=== PATIENT | male | born 1990 | race African-American/Black ===

== ENCOUNTER 2016-08-23 15:00 | Inpatient (IN) | payer MEDICAID ==
[2016-08-23] MEDS ORDERED: ALTEPLASE 2 MG VIAL IVP PRN (15:17)
[2016-08-23] MEDS ORDERED: PETROLATUM WHITE EACHEYE PRN (16:08)
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
[2016-08-23] MEDS: ACETAMINOPHEN 650 MG/20.3 ML UDCUP TUBE PRN (19:34)
[2016-08-23] MEDS: CHLORHEXIDINE GLUCONATE 15 ML UDL PO SCH (19:54)
[2016-08-23] MEDS: levETIRAcetam 500 MG/5 ML UDCUP TUBE SCH (21:05)
[2016-08-24] MEDS: ACETAMINOPHEN 650 MG/20.3 ML UDCUP TUBE PRN (03:03)
[2016-08-24 07:42] LABS: ADD DIFF? YES; ADD MORPH? NO; ADD SCAN? NO; ATYPICAL LYMPHOCYTE FLAG 50 (0-99); FRAGMENT RBC FLAG 0 (0-99); HEMATOCRIT 37.2 % (40.0-51.0); HEMOGLOBIN 12.9 g/dL (13.7-17.5); LEFT SHIFT FLG 40 (0-99); LIPEMIA HEMOLYSIS FLAG 90 (0-99); MEAN CELL HEMOGLOBIN 29.9 pg (27.9-34.1); MEAN CELL HEMOGLOBIN CONCENTR. 34.7 g/dL (32.4-36.7); MEAN CELL VOLUME 86.1 fL (81.5-99.8); MEAN PLATELET VOLUME 9.4 fL (8.7-11.7); PLATELET CLUMPS FLAG 0 (0-99); PLATELET COUNT 460 10^3/uL (150-400); RED BLOOD CELL COUNT 4.32 10^6/uL (4.40-6.38); RED CELL DISTRIBUTION WIDTH 12.1 % (11.5-15.2)
[2016-08-24 07:55] LABS: ALANINE AMINOTRANSFERASE 78 IU/L (21-72); ALKALINE PHOSPHATASE 77 IU/L (38-126); ANION GAP 12 mEq/L (8-16); ASPARTATE AMINOTRANSFERASE 55 IU/L (17-59); BILIRUBIN,TOTAL 0.5 mg/dL (0.1-1.4); CALCIUM 9.7 mg/dL (8.5-10.4); CARBON DIOXIDE 27 mEq/l (22-31); CHLORIDE 102 mEq/L (97-110); CREATININE 0.6 mg/dL (0.7-1.3); GLOMERULAR FILTRATION RATE > 60; GLUCOSE 101 mg/dL (70-100); POTASSIUM 4.3 mEq/L (3.5-5.2); SODIUM 141 mEq/L (134-144); TOTAL PROTEIN 6.7 g/dL (6.3-8.2)
[2016-08-24 08:40] LABS: PLATELET ESTIMATE INCREASED (ADEQ)
[2016-08-24] MEDS: ENOXAPARIN 40 MG/0.4 ML SYR SC SCH (09:10)
[2016-08-24] MEDS: ASPIRIN RECTAL 300 MG SUPP PR SCH (09:10)
[2016-08-24] MEDS: levETIRAcetam 500 MG/5 ML UDCUP TUBE SCH ×2 (09:10→20:46)
[2016-08-24] MEDS: CHLORHEXIDINE GLUCONATE 15 ML UDL PO SCH ×2 (09:11→20:47)
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
--- NOTE | 2016-08-24 10:14 | PDOREHIP ---
Admission [facility] - Admission - 3 Day Assessment Period Admission Date/Day 1: 08/23/16 Day 2: 08/24/16 Day 3: 08/25/16 - Active Diagnoses Comorbidities and Co-existing Conditions at Admission: 87271. None of the Above - Skin Conditions Unhealed Pressure Ulcer (1 or more/Stage 1 or >)-Admission: 0. No
[2016-08-24] MEDS: ACETAMINOPHEN 650 MG/20.3 ML UDCUP TUBE SCH ×3 (11:16→23:23)
[2016-08-24] MEDS: traMADol 50 MG TAB PO PRN (20:47)
[2016-08-25] MEDS: traMADol 50 MG TAB PO PRN ×4 (02:20→20:45)
[2016-08-25] MEDS: ACETAMINOPHEN 650 MG/20.3 ML UDCUP TUBE SCH ×4 (05:35→22:17)
[2016-08-25] MEDS ORDERED: BENEFIBER/NUTRISOURCE FIBER PKT 1 EACH TUBE SCH ×2 (09:00→18:00)
[2016-08-25] MEDS: levETIRAcetam 500 MG/5 ML UDCUP TUBE SCH ×2 (09:15→20:45)
[2016-08-25] MEDS: CHLORHEXIDINE GLUCONATE 15 ML UDL PO SCH ×2 (09:15→20:45)
[2016-08-25] MEDS: ENOXAPARIN 40 MG/0.4 ML SYR SC SCH (09:22)
[2016-08-25] MEDS: ASPIRIN RECTAL 300 MG SUPP PR SCH (09:26)
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
[2016-08-25] MEDS: BISACODYL 10 MG SUPP PR PRN (16:43)
[2016-08-25] MEDS: BENEFIBER/NUTRISOURCE FIBER PKT 1 EACH TUBE PRN (18:46)
[2016-08-25] MEDS: SENNOSIDES 17.6 MG/10 ML UDL TUBE PRN (19:39)
[2016-08-26] MEDS: traMADol 50 MG TAB PO PRN ×2 (02:30→21:01)
[2016-08-26] MEDS: ACETAMINOPHEN 650 MG/20.3 ML UDCUP TUBE SCH ×3 (06:18→18:02)
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
[2016-08-26] MEDS: ASPIRIN 325 MG TAB TUBE SCH (09:53)
[2016-08-26] MEDS: levETIRAcetam 500 MG/5 ML UDCUP TUBE SCH ×2 (09:53→21:01)
[2016-08-26] MEDS: CHLORHEXIDINE GLUCONATE 15 ML UDL PO SCH ×2 (09:54→21:01)
[2016-08-26] MEDS: ENOXAPARIN 40 MG/0.4 ML SYR SC SCH (09:54)
[2016-08-26] MEDS ORDERED: BENEFIBER/NUTRISOURCE FIBER PKT 1 EACH TUBE SCH (18:00)
[2016-08-26] MEDS ORDERED: traZODone 50 MG TAB PO SCH (21:00)
[2016-08-26] MEDS: traZODone 50 MG TAB TUBE SCH (21:01)
[2016-08-27] MEDS: ACETAMINOPHEN 650 MG/20.3 ML UDCUP TUBE SCH ×4 (00:34→18:04)
[2016-08-27] MEDS: traMADol 50 MG TAB PO PRN ×2 (02:45→21:02)
[2016-08-27] MEDS: ASPIRIN 325 MG TAB TUBE SCH (09:25)
[2016-08-27] MEDS: CHLORHEXIDINE GLUCONATE 15 ML UDL PO SCH ×2 (09:26→21:03)
[2016-08-27] MEDS: levETIRAcetam 500 MG/5 ML UDCUP TUBE SCH ×2 (09:26→21:02)
[2016-08-27] MEDS: ENOXAPARIN 40 MG/0.4 ML SYR SC SCH (09:26)
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
[2016-08-27] MEDS: traZODone 50 MG TAB TUBE SCH (21:02)
[2016-08-28] MEDS: ACETAMINOPHEN 650 MG/20.3 ML UDCUP TUBE SCH ×4 (02:24→16:58)
[2016-08-28] MEDS: traMADol 50 MG TAB PO PRN ×2 (03:43→16:57)
[2016-08-28] MEDS: ASPIRIN 325 MG TAB TUBE SCH (11:47)
[2016-08-28] MEDS: CHLORHEXIDINE GLUCONATE 15 ML UDL PO SCH (11:48)
[2016-08-28] MEDS: levETIRAcetam 500 MG/5 ML UDCUP TUBE SCH ×2 (11:48→20:08)
[2016-08-28] MEDS: ENOXAPARIN 40 MG/0.4 ML SYR SC SCH (11:48)
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
[2016-08-28] MEDS: BISACODYL 10 MG SUPP PR PRN (16:58)
[2016-08-28] MEDS: SENNOSIDES 17.6 MG/10 ML UDL TUBE PRN (16:59)
[2016-08-28] MEDS: BENEFIBER/NUTRISOURCE FIBER PKT 1 EACH TUBE PRN (16:59)
[2016-08-28] MEDS: traZODone 50 MG TAB TUBE SCH (20:08)
[2016-08-28] MEDS: NYSTATIN SUSP 500000 UNIT/5 ML UDCUP PO SCH (20:09)
[2016-08-29] MEDS: ACETAMINOPHEN 650 MG/20.3 ML UDCUP TUBE SCH ×4 (03:19→18:28)
[2016-08-29] MEDS: traMADol 50 MG TAB PO PRN ×3 (05:24→18:28)
[2016-08-29] MEDS: CHLORHEXIDINE GLUCONATE 15 ML UDL PO SCH ×3 (05:31→22:00)
[2016-08-29] MEDS: NYSTATIN SUSP 500000 UNIT/5 ML UDCUP PO SCH ×4 (06:34→22:00)
[2016-08-29] MEDS ORDERED: ACETAMINOPHEN 650 MG/20.3 ML UDCUP TUBE ONE (09:00)
[2016-08-29] MEDS: ENOXAPARIN 40 MG/0.4 ML SYR SC SCH (12:27)
[2016-08-29] MEDS: ASPIRIN 325 MG TAB TUBE SCH (12:27)
[2016-08-29] MEDS: levETIRAcetam 500 MG/5 ML UDCUP TUBE SCH ×2 (12:30→22:00)
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
[2016-08-29] MEDS: traZODone 50 MG TAB TUBE SCH (22:00)
[2016-08-30] MEDS: ACETAMINOPHEN 650 MG/20.3 ML UDCUP TUBE SCH ×5 (00:16→23:28)
[2016-08-30] MEDS: traMADol 50 MG TAB PO PRN ×2 (00:16→06:17)
[2016-08-30] MEDS: NYSTATIN SUSP 500000 UNIT/5 ML UDCUP PO SCH ×4 (06:16→21:05)
[2016-08-30 08:11] LABS: LUTEINIZING HORMONE 2.17 mIU/mL (NOT ESTABLSHD); PROLACTIN 27.9 ng/mL (3.7-17.9)
[2016-08-30 08:19] LABS: FOLLICLE STIMULATING HORMONE < 0.66 mIU/mL (1.55-9.74)
[2016-08-30 08:25] LABS: CORTISOL-AM 16.1 ug/dL (4.5-22.7)
[2016-08-30 08:27] LABS: TESTOSTERONE TOTAL 26.5 ng/dL (132-813)
[2016-08-30] MEDS: ASPIRIN 325 MG TAB TUBE SCH (09:52)
[2016-08-30] MEDS: SENNOSIDES 17.6 MG/10 ML UDL TUBE PRN (09:53)
[2016-08-30] MEDS: levETIRAcetam 500 MG/5 ML UDCUP TUBE SCH ×2 (09:55→21:04)
[2016-08-30] MEDS: ENOXAPARIN 40 MG/0.4 ML SYR SC SCH (09:57)
[2016-08-30] MEDS: BENEFIBER/NUTRISOURCE FIBER PKT 1 EACH TUBE PRN (09:58)
[2016-08-30] MEDS: CHLORHEXIDINE GLUCONATE 15 ML UDL PO SCH ×2 (13:10→21:05)
[2016-08-30] MEDS ORDERED: FLUCONAZOLE 150 MG TAB TUBE ONE (16:01)
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
[2016-08-30] MEDS: traMADol 50 MG TAB TUBE SCH ×2 (16:36→23:29)
[2016-08-30] MEDS: traZODone 50 MG TAB TUBE SCH (21:05)
[2016-08-30] MEDS: POLYETHYLENE GLYCOL 3350 17 GM PKT TUBE PRN (21:05)
[2016-08-30] MEDS: SENNOSIDES 17.6 MG/10 ML UDL TUBE SCH (21:05)
[2016-08-31] MEDS: NYSTATIN SUSP 500000 UNIT/5 ML UDCUP PO SCH ×4 (05:41→21:07)
[2016-08-31] MEDS: traMADol 50 MG TAB TUBE SCH ×4 (05:41→23:25)
[2016-08-31] MEDS: ACETAMINOPHEN 650 MG/20.3 ML UDCUP TUBE SCH ×4 (05:42→23:25)
[2016-08-31] MEDS: ASPIRIN 325 MG TAB TUBE SCH (09:54)
[2016-08-31] MEDS: ENOXAPARIN 40 MG/0.4 ML SYR SC SCH (09:54)
[2016-08-31] MEDS: CHLORHEXIDINE GLUCONATE 15 ML UDL PO SCH ×2 (09:54→21:07)
[2016-08-31] MEDS: SENNOSIDES 17.6 MG/10 ML UDL TUBE SCH ×2 (09:55→21:07)
[2016-08-31] MEDS: levETIRAcetam 500 MG/5 ML UDCUP TUBE SCH (10:33)
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
[2016-08-31] MEDS: traZODone 50 MG TAB TUBE SCH (21:07)
[2016-08-31] MEDS: traMADol 50 MG TAB PO PRN (21:08)
[2016-09-01] MEDS: ACETAMINOPHEN 650 MG/20.3 ML UDCUP TUBE SCH ×4 (05:19→23:55)
[2016-09-01] MEDS: NYSTATIN SUSP 500000 UNIT/5 ML UDCUP PO SCH ×4 (05:19→22:12)
[2016-09-01] MEDS: traMADol 50 MG TAB TUBE SCH ×4 (05:20→23:56)
[2016-09-01 08:09] LABS: ANION GAP 14 mEq/L (8-16); CALCIUM 10.2 mg/dL (8.5-10.4); CARBON DIOXIDE 26 mEq/l (22-31); CHLORIDE 99 mEq/L (97-110); CREATININE 0.7 mg/dL (0.7-1.3); GLOMERULAR FILTRATION RATE > 60; GLUCOSE 124 mg/dL (70-100); SODIUM 139 mEq/L (134-144)
[2016-09-01] MEDS: ENOXAPARIN 40 MG/0.4 ML SYR SC SCH (09:39)
[2016-09-01] MEDS: CHLORHEXIDINE GLUCONATE 15 ML UDL PO SCH ×2 (09:39→22:12)
[2016-09-01] MEDS: SENNOSIDES 17.6 MG/10 ML UDL TUBE SCH ×2 (09:39→22:11)
[2016-09-01] MEDS: POLYETHYLENE GLYCOL 3350 17 GM PKT TUBE PRN (09:39)
[2016-09-01] MEDS: ASPIRIN 325 MG TAB TUBE SCH (09:39)
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
[2016-09-01] MEDS: traZODone 50 MG TAB TUBE SCH (22:14)
[2016-09-02] MEDS: traMADol 50 MG TAB TUBE SCH ×3 (05:19→17:58)
[2016-09-02] MEDS: ACETAMINOPHEN 650 MG/20.3 ML UDCUP TUBE SCH ×3 (05:19→17:58)
[2016-09-02] MEDS: NYSTATIN SUSP 500000 UNIT/5 ML UDCUP PO SCH ×4 (05:19→22:16)
[2016-09-02] MEDS ORDERED: BISACODYL 10 MG SUPP PR ONE (06:49)
[2016-09-02] MEDS: BISACODYL 10 MG SUPP PR SCH (06:52)
[2016-09-02] MEDS: POLYETHYLENE GLYCOL 3350 17 GM PKT TUBE PRN (09:12)
[2016-09-02] MEDS: ENOXAPARIN 40 MG/0.4 ML SYR SC SCH (09:13)
[2016-09-02] MEDS: CHLORHEXIDINE GLUCONATE 15 ML UDL PO SCH ×2 (09:13→22:15)
[2016-09-02] MEDS: ASPIRIN 325 MG TAB TUBE SCH (09:13)
[2016-09-02] MEDS: SENNOSIDES 17.6 MG/10 ML UDL TUBE SCH ×2 (09:13→22:15)
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
[2016-09-02] MEDS: traZODone 50 MG TAB TUBE SCH (22:17)
[2016-09-03] MEDS: ACETAMINOPHEN 650 MG/20.3 ML UDCUP TUBE SCH ×4 (02:05→17:38)
[2016-09-03] MEDS: traMADol 50 MG TAB TUBE SCH ×5 (02:05→23:14)
[2016-09-03] MEDS: NYSTATIN SUSP 500000 UNIT/5 ML UDCUP PO SCH ×4 (05:43→23:13)
[2016-09-03] MEDS: BISACODYL 10 MG SUPP PR SCH (05:50)
[2016-09-03] MEDS: ASPIRIN 325 MG TAB TUBE SCH (09:55)
[2016-09-03] MEDS: ENOXAPARIN 40 MG/0.4 ML SYR SC SCH (09:55)
[2016-09-03] MEDS: SENNOSIDES 17.6 MG/10 ML UDL TUBE SCH (09:58)
[2016-09-03] MEDS: CHLORHEXIDINE GLUCONATE 15 ML UDL PO SCH (10:26)
[2016-09-03] MEDS ORDERED: BISACODYL 10 MG SUPP PR PRN (13:49)
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
[2016-09-03] MEDS ORDERED: SENNOSIDES 17.6 MG/10 ML UDL TUBE PRN (14:08)
[2016-09-03] MEDS: traZODone 50 MG TAB TUBE SCH (23:14)
[2016-09-04] MEDS: ACETAMINOPHEN 650 MG/20.3 ML UDCUP TUBE SCH ×4 (00:53→17:14)
[2016-09-04] MEDS: CHLORHEXIDINE GLUCONATE 15 ML UDL PO SCH ×2 (00:53→13:28)
[2016-09-04] MEDS: NYSTATIN SUSP 500000 UNIT/5 ML UDCUP PO SCH ×4 (05:49→21:22)
[2016-09-04] MEDS: traMADol 50 MG TAB TUBE SCH ×3 (05:50→17:15)
[2016-09-04] MEDS: ENOXAPARIN 40 MG/0.4 ML SYR SC SCH (07:47)
[2016-09-04] MEDS: ASPIRIN 325 MG TAB TUBE SCH (07:48)
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
[2016-09-04 13:20] LABS: INSULIN GROWTH FACTOR Z-SCORE 1.28 SD
[2016-09-04] MEDS: traZODone 50 MG TAB TUBE SCH (21:22)
[2016-09-05] MEDS: ACETAMINOPHEN 650 MG/20.3 ML UDCUP TUBE SCH ×5 (00:20→23:38)
[2016-09-05] MEDS: traMADol 50 MG TAB TUBE SCH ×5 (00:21→23:38)
[2016-09-05] MEDS: NYSTATIN SUSP 500000 UNIT/5 ML UDCUP PO SCH ×4 (06:46→21:29)
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
[2016-09-05] MEDS: TESTOSTERONE 1% 5 GM GEL PKT TD SCH (16:09)
[2016-09-05] MEDS: ASPIRIN 325 MG TAB TUBE SCH (16:42)
[2016-09-05] MEDS: ENOXAPARIN 40 MG/0.4 ML SYR SC SCH (16:42)
[2016-09-05] MEDS: traZODone 50 MG TAB TUBE SCH (21:29)
[2016-09-06] MEDS: ASPIRIN 325 MG TAB TUBE SCH (05:14)
[2016-09-06] MEDS: BENEFIBER/NUTRISOURCE FIBER PKT 1 EACH TUBE SCH (05:14)
[2016-09-06] MEDS: NYSTATIN SUSP 500000 UNIT/5 ML UDCUP PO SCH ×4 (05:14→21:39)
[2016-09-06] MEDS: ACETAMINOPHEN 650 MG/20.3 ML UDCUP TUBE SCH ×4 (05:14→23:45)
[2016-09-06] MEDS: ENOXAPARIN 40 MG/0.4 ML SYR SC SCH (05:14)
[2016-09-06] MEDS: traMADol 50 MG TAB TUBE SCH ×4 (05:15→23:46)
[2016-09-06] MEDS ORDERED: ASPIRIN 325 MG TAB TUBE SCH (06:00)
[2016-09-06] MEDS ORDERED: ENOXAPARIN 40 MG/0.4 ML SYR SC SCH (06:00)
[2016-09-06] MEDS: TESTOSTERONE 1% 5 GM GEL PKT TD SCH (09:23)
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
[2016-09-06] MEDS: traZODone 50 MG TAB TUBE SCH (21:25)
[2016-09-07] MEDS: traMADol 50 MG TAB TUBE SCH ×4 (05:51→23:39)
[2016-09-07] MEDS: NYSTATIN SUSP 500000 UNIT/5 ML UDCUP PO SCH ×2 (05:51→11:40)
[2016-09-07] MEDS: ACETAMINOPHEN 650 MG/20.3 ML UDCUP TUBE SCH ×4 (05:51→23:39)
[2016-09-07] MEDS: ENOXAPARIN 40 MG/0.4 ML SYR SC SCH (05:52)
[2016-09-07] MEDS: ASPIRIN 325 MG TAB TUBE SCH (05:52)
[2016-09-07] MEDS: BENEFIBER/NUTRISOURCE FIBER PKT 1 EACH TUBE SCH (05:52)
[2016-09-07] MEDS: TESTOSTERONE 1% 5 GM GEL PKT TD SCH (08:16)
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
[2016-09-07] MEDS ORDERED: BENEFIBER/NUTRISOURCE FIBER PKT 1 EACH ONE (14:38)
[2016-09-07] MEDS ORDERED: BENEFIBER/NUTRISOURCE FIBER PKT 1 EACH TUBE SCH (21:00)
[2016-09-07] MEDS: traZODone 50 MG TAB TUBE SCH (21:18)
[2016-09-08] MEDS: ACETAMINOPHEN 650 MG/20.3 ML UDCUP TUBE SCH ×4 (05:37→23:58)
[2016-09-08] MEDS: ENOXAPARIN 40 MG/0.4 ML SYR SC SCH (05:37)
[2016-09-08] MEDS: ASPIRIN 325 MG TAB TUBE SCH (05:37)
[2016-09-08] MEDS: BENEFIBER/NUTRISOURCE FIBER PKT 1 EACH TUBE SCH ×2 (05:37→15:20)
[2016-09-08] MEDS: traMADol 50 MG TAB TUBE SCH ×4 (05:38→23:57)
[2016-09-08] MEDS: BISACODYL 10 MG SUPP PR SCH (09:15)
[2016-09-08 10:09] LABS: HEMATOCRIT 41.9 % (40.0-51.0); HEMOGLOBIN 14.2 g/dL (13.7-17.5); MEAN CELL HEMOGLOBIN 29.6 pg (27.9-34.1); MEAN CELL HEMOGLOBIN CONCENTR. 33.9 g/dL (32.4-36.7); MEAN CELL VOLUME 87.5 fL (81.5-99.8); RED BLOOD CELL COUNT 4.79 10^6/uL (4.40-6.38); RED CELL DISTRIBUTION WIDTH 13.4 % (11.5-15.2)
[2016-09-08 10:24] LABS: INR 0.98 (0.83-1.16); PROTIME(PATIENT) 12.9 SEC (12.0-15.0)
[2016-09-08 10:36] LABS: ANION GAP 12 mEq/L (8-16); CALCIUM 10.2 mg/dL (8.5-10.4); CARBON DIOXIDE 27 mEq/l (22-31); CHLORIDE 99 mEq/L (97-110); CREATININE 0.6 mg/dL (0.7-1.3); GLOMERULAR FILTRATION RATE > 60; GLUCOSE 87 mg/dL (70-100); POTASSIUM 4.7 mEq/L (3.5-5.2); SODIUM 138 mEq/L (134-144)
[2016-09-08] MEDS: TESTOSTERONE 1% 5 GM GEL PKT TD SCH (11:11)
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
--- NOTE | 2016-09-08 14:35 | CPEKG ---
Heart Rate: 114 RR Interval: 526 P-R Interval: 124 QRSD Interval: 74 QT Interval: 328 QTC Interval: 452 P [place]: 81 QRS [place]: 48 T Wave [place]: 44 EKG Severity - ABNORMAL ECG - EKG Impression: SINUS TACHYCARDIA Electronically Signed By: Roddy Gibbs 08-Sep-2016 16:55:18
[2016-09-08] MEDS ORDERED: MAGNESIUM CITRATE 300 ML BOTTLE TUBE PRN (17:07)
[2016-09-08] MEDS: MELATONIN 3 MG TAB PO SCH (20:48)
[2016-09-08] MEDS: traZODone 50 MG TAB TUBE SCH (20:48)
[2016-09-08] MEDS: SENNOSIDES 17.6 MG/10 ML UDL TUBE SCH (21:07)
[2016-09-09] MEDS: BENEFIBER/NUTRISOURCE FIBER PKT 1 EACH TUBE SCH ×2 (05:43→14:26)
[2016-09-09] MEDS: ACETAMINOPHEN 650 MG/20.3 ML UDCUP TUBE SCH ×4 (05:43→23:52)
[2016-09-09] MEDS: ASPIRIN 325 MG TAB TUBE SCH (05:43)
[2016-09-09] MEDS: ENOXAPARIN 40 MG/0.4 ML SYR SC SCH (05:43)
[2016-09-09] MEDS: traMADol 50 MG TAB TUBE SCH ×4 (05:43→23:52)
[2016-09-09] MEDS: BISACODYL 10 MG SUPP PR SCH (10:15)
[2016-09-09] MEDS: SENNOSIDES 17.6 MG/10 ML UDL TUBE SCH ×2 (11:20→20:54)
[2016-09-09] MEDS: POLYETHYLENE GLYCOL 3350 17 GM PKT TUBE SCH (11:20)
[2016-09-09] MEDS: TESTOSTERONE 1% 5 GM GEL PKT TD SCH (11:27)
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
[2016-09-09] MEDS: traZODone 50 MG TAB TUBE SCH (20:53)
[2016-09-09] MEDS: MELATONIN 3 MG TAB PO SCH (20:53)
[2016-09-10] MEDS: BENEFIBER/NUTRISOURCE FIBER PKT 1 EACH TUBE SCH ×2 (05:51→13:39)
[2016-09-10] MEDS: traMADol 50 MG TAB TUBE SCH ×2 (05:51→11:52)
[2016-09-10] MEDS: ENOXAPARIN 40 MG/0.4 ML SYR SC SCH (05:51)
[2016-09-10] MEDS: ACETAMINOPHEN 650 MG/20.3 ML UDCUP TUBE SCH ×3 (05:52→21:13)
[2016-09-10] MEDS: ASPIRIN 325 MG TAB TUBE SCH (06:05)
[2016-09-10] MEDS: TESTOSTERONE 1% 5 GM GEL PKT TD SCH (08:53)
[2016-09-10] MEDS: POLYETHYLENE GLYCOL 3350 17 GM PKT TUBE SCH (08:53)
[2016-09-10] MEDS: SENNOSIDES 17.6 MG/10 ML UDL TUBE SCH ×2 (08:53→21:12)
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
[2016-09-10] MEDS: BISACODYL 10 MG SUPP PR SCH (16:39)
[2016-09-10] MEDS ORDERED: oxyCODONE IR 5 MG TAB PO ONE (16:59)
[2016-09-10] MEDS ORDERED: oxyCODONE IR 5 MG TAB PO PRN (17:01)
[2016-09-10] MEDS: traZODone 50 MG TAB TUBE SCH (21:14)
[2016-09-10] MEDS: MELATONIN 3 MG TAB PO SCH (21:15)
[2016-09-11] MEDS: BENEFIBER/NUTRISOURCE FIBER PKT 1 EACH TUBE SCH ×2 (06:33→14:02)
[2016-09-11] MEDS: ASPIRIN 325 MG TAB TUBE SCH (06:33)
[2016-09-11] MEDS: ENOXAPARIN 40 MG/0.4 ML SYR SC SCH (06:34)
[2016-09-11] MEDS: ACETAMINOPHEN 650 MG/20.3 ML UDCUP TUBE SCH ×3 (06:34→21:44)
[2016-09-11] MEDS: BISACODYL 10 MG SUPP PR SCH (08:51)
[2016-09-11] MEDS: TESTOSTERONE 1% 5 GM GEL PKT TD SCH (08:52)
[2016-09-11] MEDS: SENNOSIDES 17.6 MG/10 ML UDL TUBE SCH ×2 (08:52→19:05)
[2016-09-11] MEDS: POLYETHYLENE GLYCOL 3350 17 GM PKT TUBE SCH (08:53)
[2016-09-11] MEDS: traMADol 50 MG TAB TUBE PRN ×2 (12:33→22:01)
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
[2016-09-11] MEDS: traZODone 50 MG TAB TUBE SCH (22:07)
[2016-09-11] MEDS: MELATONIN 3 MG TAB PO SCH (22:08)
[2016-09-12] MEDS: ASPIRIN 325 MG TAB TUBE SCH (06:03)
[2016-09-12] MEDS: ACETAMINOPHEN 650 MG/20.3 ML UDCUP TUBE SCH ×3 (06:03→21:48)
[2016-09-12] MEDS: BENEFIBER/NUTRISOURCE FIBER PKT 1 EACH TUBE SCH ×2 (06:04→14:58)
[2016-09-12] MEDS: traMADol 50 MG TAB TUBE PRN ×2 (06:05→12:38)
[2016-09-12] MEDS: ENOXAPARIN 40 MG/0.4 ML SYR SC SCH (06:30)
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
[2016-09-12] MEDS ORDERED: BISACODYL 10 MG SUPP PR PRN (10:19)
[2016-09-12] MEDS: TESTOSTERONE 1% 5 GM GEL PKT TD SCH (12:39)
[2016-09-12] MEDS: SENNOSIDES 17.6 MG/10 ML UDL TUBE SCH ×2 (12:39→21:47)
[2016-09-12] MEDS: POLYETHYLENE GLYCOL 3350 17 GM PKT TUBE SCH (12:40)
[2016-09-12] MEDS ORDERED: traMADol 50 MG TAB PO PRN (13:54)
[2016-09-12] MEDS: oxyCODONE ORAL SOLUTION 10 MG/0.5 ML UDSYR TUBE PRN (14:00)
[2016-09-12] MEDS: BISACODYL 10 MG SUPP PR SCH (15:52)
[2016-09-12] MEDS: traMADol 50 MG TAB TUBE SCH (17:57)
[2016-09-12] MEDS: traZODone 50 MG TAB TUBE SCH (21:48)
[2016-09-12] MEDS: MELATONIN 3 MG TAB PO SCH (21:48)
[2016-09-13] MEDS: traMADol 50 MG TAB TUBE SCH ×5 (05:11→23:01)
[2016-09-13] MEDS: BENEFIBER/NUTRISOURCE FIBER PKT 1 EACH TUBE SCH ×2 (06:05→14:16)
[2016-09-13] MEDS: ACETAMINOPHEN 650 MG/20.3 ML UDCUP TUBE SCH ×3 (06:05→21:04)
[2016-09-13] MEDS: GLYCERIN ADULT 1 EACH SUPP PR SCH (06:06)
[2016-09-13] MEDS: ASPIRIN 325 MG TAB TUBE SCH (06:06)
[2016-09-13] MEDS: ENOXAPARIN 40 MG/0.4 ML SYR SC SCH (06:07)
[2016-09-13] MEDS: TESTOSTERONE 1% 5 GM GEL PKT TD SCH (07:45)
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
[2016-09-13] MEDS: POLYETHYLENE GLYCOL 3350 17 GM PKT TUBE SCH (10:14)
[2016-09-13] MEDS: SENNOSIDES 17.6 MG/10 ML UDL TUBE SCH ×2 (10:14→19:29)
[2016-09-13] MEDS: MELATONIN 3 MG TAB PO SCH (20:52)
[2016-09-13] MEDS: traZODone 50 MG TAB TUBE SCH (20:52)
[2016-09-14] MEDS: ACETAMINOPHEN 650 MG/20.3 ML UDCUP TUBE SCH ×3 (05:53→21:06)
[2016-09-14] MEDS: ASPIRIN 325 MG TAB TUBE SCH (05:58)
[2016-09-14] MEDS: ENOXAPARIN 40 MG/0.4 ML SYR SC SCH (05:58)
[2016-09-14] MEDS: traMADol 50 MG TAB TUBE SCH ×4 (05:58→23:26)
[2016-09-14] MEDS: BENEFIBER/NUTRISOURCE FIBER PKT 1 EACH TUBE SCH ×2 (05:58→14:10)
[2016-09-14] MEDS: GLYCERIN ADULT 1 EACH SUPP PR SCH (05:59)
[2016-09-14] MEDS: TESTOSTERONE 1% 5 GM GEL PKT TD SCH (07:55)
[2016-09-14] MEDS: SENNOSIDES 17.6 MG/10 ML UDL TUBE SCH ×2 (07:57→21:07)
[2016-09-14] MEDS: POLYETHYLENE GLYCOL 3350 17 GM PKT TUBE SCH (07:57)
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
[2016-09-14] MEDS: traZODone 50 MG TAB TUBE SCH (21:07)
[2016-09-14] MEDS: MELATONIN 3 MG TAB PO SCH (21:07)
[2016-09-15] MEDS: ENOXAPARIN 40 MG/0.4 ML SYR SC SCH (05:01)
[2016-09-15] MEDS: ASPIRIN 325 MG TAB TUBE SCH (05:01)
[2016-09-15] MEDS: traMADol 50 MG TAB TUBE SCH ×4 (05:01→23:49)
[2016-09-15] MEDS: ACETAMINOPHEN 650 MG/20.3 ML UDCUP TUBE SCH ×3 (05:01→21:21)
[2016-09-15] MEDS: BENEFIBER/NUTRISOURCE FIBER PKT 1 EACH TUBE SCH ×2 (05:01→14:31)
[2016-09-15] MEDS: GLYCERIN ADULT 1 EACH SUPP PR SCH (05:04)
[2016-09-15] MEDS: TESTOSTERONE 1% 5 GM GEL PKT TD SCH (07:36)
[2016-09-15] MEDS: SENNOSIDES 17.6 MG/10 ML UDL TUBE SCH ×2 (07:36→21:21)
[2016-09-15] MEDS: POLYETHYLENE GLYCOL 3350 17 GM PKT TUBE SCH (07:36)
[2016-09-15] MEDS: oxyCODONE ORAL SOLUTION 10 MG/0.5 ML UDSYR TUBE PRN ×2 (07:37→15:56)
[2016-09-15] MEDS: TEARS/DEXTRAN 70/HYPROMELLOSE 15 ML OPHT.BTL EACHEYE PRN (11:55)
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
[2016-09-15] MEDS: traZODone 50 MG TAB TUBE SCH (21:22)
[2016-09-15] MEDS: MELATONIN 3 MG TAB PO SCH (21:22)
[2016-09-16] MEDS: oxyCODONE ORAL SOLUTION 10 MG/0.5 ML UDSYR TUBE PRN ×2 (04:39→09:16)
[2016-09-16] MEDS: ACETAMINOPHEN 650 MG/20.3 ML UDCUP TUBE SCH ×3 (05:42→22:22)
[2016-09-16] MEDS: ASPIRIN 325 MG TAB TUBE SCH (05:43)
[2016-09-16] MEDS: BENEFIBER/NUTRISOURCE FIBER PKT 1 EACH TUBE SCH ×2 (05:43→15:04)
[2016-09-16] MEDS: GLYCERIN ADULT 1 EACH SUPP PR SCH (05:43)
[2016-09-16] MEDS: ENOXAPARIN 40 MG/0.4 ML SYR SC SCH (05:44)
[2016-09-16] MEDS: traMADol 50 MG TAB TUBE SCH ×4 (05:44→22:22)
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
[2016-09-16] MEDS: SENNOSIDES 17.6 MG/10 ML UDL TUBE SCH ×2 (09:17→20:31)
[2016-09-16] MEDS: POLYETHYLENE GLYCOL 3350 17 GM PKT TUBE SCH (09:17)
[2016-09-16] MEDS: TESTOSTERONE 1% 5 GM GEL PKT TD SCH (09:26)
[2016-09-16] MEDS: MELATONIN 3 MG TAB PO SCH (20:31)
[2016-09-16] MEDS: traZODone 50 MG TAB TUBE SCH (20:31)
[2016-09-17] MEDS: oxyCODONE ORAL SOLUTION 10 MG/0.5 ML UDSYR TUBE PRN (01:38)
[2016-09-17] MEDS: ACETAMINOPHEN 650 MG/20.3 ML UDCUP TUBE SCH ×3 (05:02→21:38)
[2016-09-17] MEDS: BENEFIBER/NUTRISOURCE FIBER PKT 1 EACH TUBE SCH ×2 (05:02→13:14)
[2016-09-17] MEDS: ENOXAPARIN 40 MG/0.4 ML SYR SC SCH (05:03)
[2016-09-17] MEDS: GLYCERIN ADULT 1 EACH SUPP PR SCH (05:03)
[2016-09-17] MEDS: ASPIRIN 325 MG TAB TUBE SCH (05:03)
[2016-09-17] MEDS: traMADol 50 MG TAB TUBE SCH ×3 (05:03→17:27)
[2016-09-17] MEDS: TESTOSTERONE 1% 5 GM GEL PKT TD SCH (10:07)
[2016-09-17] MEDS: SENNOSIDES 17.6 MG/10 ML UDL TUBE SCH ×2 (10:15→21:32)
[2016-09-17] MEDS: POLYETHYLENE GLYCOL 3350 17 GM PKT TUBE SCH (10:15)
[2016-09-17] MEDS ORDERED: GLYCERIN ADULT 1 EACH SUPP PR PRN (14:32)
[2016-09-17] MEDS ORDERED: POLYETHYLENE GLYCOL 3350 17 GM PKT TUBE PRN (14:33)
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
[2016-09-17] MEDS: MELATONIN 3 MG TAB PO SCH (21:40)
[2016-09-17] MEDS: traZODone 50 MG TAB TUBE SCH (21:40)
[2016-09-18] MEDS: traMADol 50 MG TAB TUBE SCH ×5 (00:12→23:41)
[2016-09-18] MEDS: ACETAMINOPHEN 650 MG/20.3 ML UDCUP TUBE SCH ×3 (05:30→21:41)
[2016-09-18] MEDS: ASPIRIN 325 MG TAB TUBE SCH (05:35)
[2016-09-18] MEDS: ENOXAPARIN 40 MG/0.4 ML SYR SC SCH (05:35)
[2016-09-18] MEDS: BENEFIBER/NUTRISOURCE FIBER PKT 1 EACH TUBE SCH ×2 (05:36→14:30)
[2016-09-18] MEDS: SENNOSIDES 17.6 MG/10 ML UDL TUBE SCH ×2 (10:43→21:38)
[2016-09-18] MEDS: TESTOSTERONE 1% 5 GM GEL PKT TD SCH (14:30)
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
[2016-09-18] MEDS: MELATONIN 3 MG TAB PO SCH (21:38)
[2016-09-18] MEDS: traZODone 50 MG TAB TUBE SCH (21:38)
[2016-09-19] MEDS: BENEFIBER/NUTRISOURCE FIBER PKT 1 EACH TUBE SCH ×2 (05:38→13:18)
[2016-09-19] MEDS: ACETAMINOPHEN 650 MG/20.3 ML UDCUP TUBE SCH ×3 (05:38→21:23)
[2016-09-19] MEDS: ASPIRIN 325 MG TAB TUBE SCH (05:40)
[2016-09-19] MEDS: traMADol 50 MG TAB TUBE SCH ×3 (05:40→18:03)
[2016-09-19] MEDS: ENOXAPARIN 40 MG/0.4 ML SYR SC SCH (05:41)
[2016-09-19] MEDS: SENNOSIDES 17.6 MG/10 ML UDL TUBE SCH ×2 (09:52→21:25)
[2016-09-19] MEDS: TESTOSTERONE 1% 5 GM GEL PKT TD SCH (10:40)
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
[2016-09-19 15:37] LABS: % IMMATURE GRANULYOCYTES 0.4 % (0.0-1.1); ABSOLUTE IMMATURE GRANULOCYTES 0.02 10^3/uL (0.00-0.10); ADD DIFF? NO; ADD MORPH? NO; ADD SCAN? NO; ATYPICAL LYMPHOCYTE FLAG 20 (0-99); FRAGMENT RBC FLAG 0 (0-99); HEMATOCRIT 38.8 % (40.0-51.0); HEMOGLOBIN 13.2 g/dL (13.7-17.5); LEFT SHIFT FLG 0 (0-99); LIPEMIA HEMOLYSIS FLAG 90 (0-99); MEAN CELL HEMOGLOBIN 30.3 pg (27.9-34.1); MEAN PLATELET VOLUME 10.7 fL (8.7-11.7); PLATELET CLUMPS FLAG 0 (0-99); PLATELET COUNT 299 10^3/uL (150-400); RED BLOOD CELL COUNT 4.36 10^6/uL (4.40-6.38)
[2016-09-19 19:14] LABS: COLOR YELLOW; LEUKOCYTE ESTERASE,URINE NEGATIVE (NEGATIVE); NITRITE,URINE NEGATIVE (NEGATIVE)
[2016-09-19] MEDS: traZODone 50 MG TAB TUBE SCH (21:23)
[2016-09-19] MEDS: MELATONIN 3 MG TAB PO SCH (21:23)
[2016-09-20] MEDS: traMADol 50 MG TAB TUBE SCH ×5 (00:29→23:49)
[2016-09-20] MEDS: ACETAMINOPHEN 650 MG/20.3 ML UDCUP TUBE SCH ×4 (05:21→23:49)
[2016-09-20] MEDS: ASPIRIN 325 MG TAB TUBE SCH (05:22)
[2016-09-20] MEDS: BENEFIBER/NUTRISOURCE FIBER PKT 1 EACH TUBE SCH ×2 (05:22→17:45)
[2016-09-20] MEDS: TESTOSTERONE 1% 5 GM GEL PKT TD SCH (09:57)
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
[2016-09-20] MEDS ORDERED: ACETAMINOPHEN 650 MG/20.3 ML UDCUP ONE (11:38)
[2016-09-20] MEDS: SENNOSIDES 17.6 MG/10 ML UDL TUBE SCH ×2 (11:42→21:01)
[2016-09-20] MEDS ORDERED: ACETAMINOPHEN 650 MG/20.3 ML UDCUP PO SCH (12:00)
[2016-09-20] MEDS: traZODone 50 MG TAB TUBE SCH (21:01)
[2016-09-20] MEDS: MELATONIN 3 MG TAB PO SCH (21:01)
[2016-09-21] MEDS: BENEFIBER/NUTRISOURCE FIBER PKT 1 EACH TUBE SCH ×2 (05:57→15:54)
[2016-09-21] MEDS: ASPIRIN 325 MG TAB TUBE SCH (05:57)
[2016-09-21] MEDS: ACETAMINOPHEN 650 MG/20.3 ML UDCUP TUBE SCH ×2 (05:57→16:10)
[2016-09-21] MEDS: traMADol 50 MG TAB TUBE SCH ×4 (05:58→23:35)
[2016-09-21] MEDS: TESTOSTERONE 1% 5 GM GEL PKT TD SCH (08:13)
[2016-09-21] MEDS: SENNOSIDES 17.6 MG/10 ML UDL TUBE SCH ×2 (08:17→20:41)
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
[2016-09-21] MEDS: ACETAMINOPHEN 325 MG TAB PO SCH ×3 (12:55→23:35)
[2016-09-21] MEDS: MELATONIN 3 MG TAB PO SCH (20:41)
[2016-09-21] MEDS: traZODone 50 MG TAB TUBE SCH (20:41)
[2016-09-22] MEDS: oxyCODONE ORAL SOLUTION 10 MG/0.5 ML UDSYR TUBE PRN (01:31)
[2016-09-22] MEDS: traMADol 50 MG TAB TUBE PRN ×2 (03:22→19:49)
[2016-09-22] MEDS: BENEFIBER/NUTRISOURCE FIBER PKT 1 EACH TUBE SCH ×2 (05:52→15:39)
[2016-09-22] MEDS: ACETAMINOPHEN 325 MG TAB PO SCH ×4 (05:52→23:36)
[2016-09-22] MEDS: ASPIRIN 325 MG TAB TUBE SCH (05:52)
[2016-09-22] MEDS: traMADol 50 MG TAB TUBE SCH ×4 (05:52→23:37)
[2016-09-22] MEDS: TESTOSTERONE 1% 5 GM GEL PKT TD SCH (10:18)
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
[2016-09-22] MEDS: SENNOSIDES 17.6 MG/10 ML UDL TUBE SCH (15:55)
[2016-09-22] MEDS: traZODone 50 MG TAB TUBE SCH (21:34)
[2016-09-22] MEDS: MELATONIN 3 MG TAB PO SCH (21:34)
[2016-09-22] MEDS: SENNOSIDES 1 TAB PO SCH (21:34)
[2016-09-23] MEDS: ACETAMINOPHEN 325 MG TAB PO SCH ×4 (06:06→22:37)
[2016-09-23] MEDS: traMADol 50 MG TAB TUBE SCH ×4 (06:06→22:38)
[2016-09-23] MEDS: BENEFIBER/NUTRISOURCE FIBER PKT 1 EACH TUBE SCH ×2 (06:06→15:39)
[2016-09-23] MEDS: ASPIRIN 325 MG TAB TUBE SCH (06:06)
[2016-09-23] MEDS: TESTOSTERONE 1% 5 GM GEL PKT TD SCH (09:25)
[2016-09-23] MEDS: SENNOSIDES 1 TAB PO SCH ×2 (09:25→20:25)
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
[2016-09-23] MEDS: traMADol 50 MG TAB TUBE PRN (16:07)
[2016-09-23] MEDS: traZODone 50 MG TAB TUBE SCH (20:25)
[2016-09-23] MEDS: MELATONIN 3 MG TAB PO SCH (20:25)
[2016-09-23] MEDS: oxyCODONE ORAL SOLUTION 10 MG/0.5 ML UDSYR TUBE PRN (20:25)
[2016-09-24] MEDS: traMADol 50 MG TAB TUBE PRN ×2 (03:40→17:10)
[2016-09-24] MEDS: traMADol 50 MG TAB TUBE SCH ×4 (06:01→23:02)
[2016-09-24] MEDS: ASPIRIN 325 MG TAB TUBE SCH (06:01)
[2016-09-24] MEDS: ACETAMINOPHEN 325 MG TAB PO SCH ×4 (06:01→23:03)
[2016-09-24] MEDS: BENEFIBER/NUTRISOURCE FIBER PKT 1 EACH TUBE SCH ×2 (06:02→12:58)
[2016-09-24] MEDS: TESTOSTERONE 1% 5 GM GEL PKT TD SCH (09:08)
[2016-09-24] MEDS: SENNOSIDES 1 TAB PO SCH ×2 (09:08→21:15)
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
[2016-09-24] MEDS: TEARS/DEXTRAN 70/HYPROMELLOSE 15 ML OPHT.BTL EACHEYE PRN (12:56)
[2016-09-24 13:31] LABS: HEMATOCRIT 41.7 % (40.0-51.0); HEMOGLOBIN 14.1 g/dL (13.7-17.5)
[2016-09-24] MEDS: MELATONIN 3 MG TAB PO SCH (21:15)
[2016-09-24] MEDS: traZODone 50 MG TAB TUBE SCH (21:16)
[2016-09-25] MEDS: traMADol 50 MG TAB TUBE SCH ×4 (05:29→23:52)
[2016-09-25] MEDS: ACETAMINOPHEN 325 MG TAB PO SCH ×4 (05:30→23:52)
[2016-09-25] MEDS: BENEFIBER/NUTRISOURCE FIBER PKT 1 EACH TUBE SCH ×2 (05:31→15:38)
[2016-09-25] MEDS: ASPIRIN 325 MG TAB TUBE SCH (05:31)
[2016-09-25] MEDS: TESTOSTERONE 1% 5 GM GEL PKT TD SCH (09:34)
[2016-09-25] MEDS: SENNOSIDES 1 TAB PO SCH ×2 (09:34→23:53)
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
[2016-09-25] MEDS: traZODone 50 MG TAB TUBE SCH (23:52)
[2016-09-25] MEDS: MELATONIN 3 MG TAB PO SCH (23:52)
[2016-09-26] MEDS: ASPIRIN 325 MG TAB TUBE SCH (05:14)
[2016-09-26] MEDS: ACETAMINOPHEN 325 MG TAB PO SCH ×3 (05:14→18:31)
[2016-09-26] MEDS: traMADol 50 MG TAB TUBE SCH ×3 (05:14→18:31)
[2016-09-26] MEDS: BENEFIBER/NUTRISOURCE FIBER PKT 1 EACH TUBE SCH ×2 (05:14→13:26)
[2016-09-26] MEDS: TESTOSTERONE 1% 5 GM GEL PKT TD SCH (10:31)
[2016-09-26] MEDS: SENNOSIDES 1 TAB PO SCH ×2 (10:31→21:47)
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
[2016-09-26] MEDS: traZODone 50 MG TAB TUBE SCH (21:47)
[2016-09-26] MEDS: MELATONIN 3 MG TAB PO SCH (21:47)
[2016-09-27] MEDS: ACETAMINOPHEN 325 MG TAB PO SCH ×4 (00:40→17:18)
[2016-09-27] MEDS: traMADol 50 MG TAB TUBE SCH ×2 (00:41→06:01)
[2016-09-27] MEDS: oxyCODONE IR 5 MG TAB PO PRN ×2 (03:58→20:25)
[2016-09-27] MEDS: ASPIRIN 325 MG TAB TUBE SCH (06:01)
[2016-09-27] MEDS: BENEFIBER/NUTRISOURCE FIBER PKT 1 EACH TUBE SCH (06:01)
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
[2016-09-27] MEDS ORDERED: MAGNESIUM CITRATE 300 ML BOTTLE PO PRN (11:21)
[2016-09-27] MEDS: traMADol 50 MG TAB PO SCH ×2 (12:22→17:19)
[2016-09-27] MEDS: TESTOSTERONE 1% 5 GM GEL PKT TD SCH (12:27)
[2016-09-27] MEDS: SENNOSIDES 1 TAB PO SCH ×2 (12:29→20:25)
[2016-09-27] MEDS: BENEFIBER/NUTRISOURCE FIBER PKT 1 EACH PO SCH (17:35)
[2016-09-27] MEDS: traMADol 50 MG TAB PO PRN (20:24)
[2016-09-27] MEDS: traZODone 50 MG TAB PO SCH (20:25)
[2016-09-27] MEDS: VALPROIC ACID 250 MG CAP PO SCH (20:25)
[2016-09-27] MEDS: MELATONIN 3 MG TAB PO SCH (20:25)
[2016-09-28] MEDS: traMADol 50 MG TAB PO SCH ×4 (00:53→17:25)
[2016-09-28] MEDS: oxyCODONE IR 5 MG TAB PO PRN ×4 (00:54→19:51)
[2016-09-28] MEDS: ACETAMINOPHEN 325 MG TAB PO SCH ×4 (00:54→16:53)
[2016-09-28] MEDS: ASPIRIN 325 MG TAB PO SCH (05:27)
[2016-09-28] MEDS: BENEFIBER/NUTRISOURCE FIBER PKT 1 EACH PO SCH ×2 (05:27→15:41)
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
[2016-09-28] MEDS: VALPROIC ACID 250 MG CAP PO SCH ×2 (09:06→19:58)
[2016-09-28] MEDS: SENNOSIDES 1 TAB PO SCH ×2 (09:06→19:58)
[2016-09-28] MEDS: TESTOSTERONE 1% 5 GM GEL PKT TD SCH (09:06)
[2016-09-28] MEDS: traMADol 50 MG TAB PO PRN (16:53)
[2016-09-28] MEDS: traZODone 50 MG TAB PO SCH (19:51)
[2016-09-28] MEDS: MELATONIN 3 MG TAB PO SCH (19:59)
[2016-09-29] MEDS: traMADol 50 MG TAB PO SCH ×6 (03:29→23:16)
[2016-09-29] MEDS: ACETAMINOPHEN 325 MG TAB PO SCH ×6 (03:29→23:16)
[2016-09-29] MEDS: ASPIRIN 325 MG TAB PO SCH (05:46)
[2016-09-29] MEDS: BENEFIBER/NUTRISOURCE FIBER PKT 1 EACH PO SCH ×2 (05:55→13:30)
[2016-09-29] MEDS: SENNOSIDES 1 TAB PO SCH ×2 (08:16→20:39)
[2016-09-29] MEDS: VALPROIC ACID 250 MG CAP PO SCH (08:17)
[2016-09-29] MEDS: TESTOSTERONE 1% 5 GM GEL PKT TD SCH (08:17)
[2016-09-29] MEDS: traMADol 50 MG TAB PO PRN (09:18)
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
[2016-09-29] MEDS: MELATONIN 3 MG TAB PO SCH (20:40)
[2016-09-29] MEDS: traZODone 50 MG TAB PO SCH (20:40)
[2016-09-30] MEDS: ASPIRIN 325 MG TAB PO SCH (05:23)
[2016-09-30] MEDS: ACETAMINOPHEN 325 MG TAB PO SCH ×4 (05:23→23:37)
[2016-09-30] MEDS: traMADol 50 MG TAB PO SCH ×4 (05:24→23:38)
[2016-09-30] MEDS: BENEFIBER/NUTRISOURCE FIBER PKT 1 EACH PO SCH ×2 (05:24→12:17)
[2016-09-30] MEDS ORDERED: DIVALPROEX NA 250 MG TAB PO ONE (08:57)
[2016-09-30] MEDS: TESTOSTERONE 1% 5 GM GEL PKT TD SCH (09:17)
[2016-09-30] MEDS: SENNOSIDES 1 TAB PO SCH ×2 (09:17→20:25)
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
[2016-09-30] MEDS ORDERED: RISPERIDONE 1 MG ODT TAB SL ONE (13:48)
[2016-09-30] MEDS: traMADol 50 MG TAB PO PRN (14:14)
[2016-09-30] MEDS: PROPRANOLOL HCL 10 MG TAB PO SCH ×2 (17:17→22:05)
[2016-09-30] MEDS: oxyCODONE IR 5 MG TAB PO PRN (19:50)
[2016-09-30] MEDS: traZODone 50 MG TAB PO SCH (20:26)
[2016-09-30] MEDS: MELATONIN 3 MG TAB PO SCH (20:26)
[2016-10-01] MEDS: ASPIRIN 325 MG TAB PO SCH (05:31)
[2016-10-01] MEDS: ACETAMINOPHEN 325 MG TAB PO SCH ×4 (05:32→23:17)
[2016-10-01] MEDS: traMADol 50 MG TAB PO SCH ×4 (05:32→23:16)
[2016-10-01] MEDS: BENEFIBER/NUTRISOURCE FIBER PKT 1 EACH PO SCH ×2 (05:33→15:53)
[2016-10-01] MEDS: TESTOSTERONE 1% 5 GM GEL PKT TD SCH (07:43)
[2016-10-01] MEDS: oxyCODONE IR 5 MG TAB PO PRN ×2 (07:43→15:54)
[2016-10-01] MEDS: PROPRANOLOL HCL 10 MG TAB PO SCH ×3 (07:43→23:25)
[2016-10-01] MEDS: SENNOSIDES 1 TAB PO SCH ×2 (07:43→23:15)
[2016-10-01] MEDS ORDERED: risperiDONE 1 MG TAB PO ONE (09:50)
[2016-10-01] MEDS ORDERED: risperiDONE 2 MG TAB PO ONE (10:15)
[2016-10-01] MEDS ORDERED: risperiDONE 2 MG TAB PO SCH (10:15)
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
[2016-10-01] MEDS ORDERED: risperiDONE 0.5 MG TAB PO SCH (21:00)
[2016-10-01] MEDS: risperiDONE 0.25 MG TAB PO SCH (23:15)
[2016-10-01] MEDS: MELATONIN 3 MG TAB PO SCH (23:15)
[2016-10-01] MEDS: traZODone 50 MG TAB PO SCH (23:16)
[2016-10-02] MEDS: traMADol 50 MG TAB PO SCH ×5 (05:19→23:48)
[2016-10-02] MEDS: ACETAMINOPHEN 325 MG TAB PO SCH ×5 (05:19→23:49)
[2016-10-02] MEDS: ASPIRIN 325 MG TAB PO SCH (05:19)
[2016-10-02] MEDS: BENEFIBER/NUTRISOURCE FIBER PKT 1 EACH PO SCH ×2 (05:20→13:46)
[2016-10-02 08:03] LABS: HEMATOCRIT 40.6 % (40.0-51.0); HEMOGLOBIN 14.1 g/dL (13.7-17.5); MEAN CELL HEMOGLOBIN 30.9 pg (27.9-34.1); MEAN CELL HEMOGLOBIN CONCENTR. 34.7 g/dL (32.4-36.7); MEAN CELL VOLUME 88.8 fL (81.5-99.8); RED BLOOD CELL COUNT 4.57 10^6/uL (4.40-6.38); RED CELL DISTRIBUTION WIDTH 13.6 % (11.5-15.2)
[2016-10-02 08:26] LABS: ALANINE AMINOTRANSFERASE 49 IU/L (21-72); ALBUMIN 4.2 g/dL (3.5-5.0); ALKALINE PHOSPHATASE 73 IU/L (38-126); ANION GAP 11 mEq/L (8-16); ASPARTATE AMINOTRANSFERASE 27 IU/L (17-59); BILIRUBIN,TOTAL 1.3 mg/dL (0.1-1.4); BILIRUBIN-CONJUGATED 0.3 mg/dL (0.0-0.5); CALCIUM 10.1 mg/dL (8.5-10.4); CARBON DIOXIDE 24 mEq/l (22-31); CHLORIDE 108 mEq/L (97-110); CREATININE 0.8 mg/dL (0.7-1.3); GLOMERULAR FILTRATION RATE > 60; GLUCOSE 91 mg/dL (70-100); POTASSIUM 4.6 mEq/L (3.5-5.2); SODIUM 143 mEq/L (134-144); TOTAL PROTEIN 6.8 g/dL (6.3-8.2)
[2016-10-02] MEDS: PROPRANOLOL HCL 10 MG TAB PO SCH ×3 (08:40→21:00)
[2016-10-02] MEDS: TESTOSTERONE 1% 5 GM GEL PKT TD SCH (08:41)
[2016-10-02] MEDS: SENNOSIDES 1 TAB PO SCH ×2 (08:41→21:00)
[2016-10-02] MEDS: risperiDONE 0.25 MG TAB PO SCH ×2 (08:41→21:00)
[2016-10-02] MEDS ORDERED: risperiDONE 1 MG TAB PO SCH (09:00)
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
[2016-10-02] MEDS: MELATONIN 3 MG TAB PO SCH (21:00)
[2016-10-02] MEDS: traZODone 50 MG TAB PO SCH (21:00)
[2016-10-03] MEDS: oxyCODONE IR 5 MG TAB PO PRN (04:00)
[2016-10-03] MEDS: traMADol 50 MG TAB PO SCH ×3 (06:04→18:18)
[2016-10-03] MEDS: BENEFIBER/NUTRISOURCE FIBER PKT 1 EACH PO SCH ×2 (06:04→13:44)
[2016-10-03] MEDS: ASPIRIN 325 MG TAB PO SCH (06:04)
[2016-10-03] MEDS: ACETAMINOPHEN 325 MG TAB PO SCH ×3 (06:04→18:16)
[2016-10-03] MEDS: risperiDONE 0.25 MG TAB PO SCH ×2 (08:19→21:45)
[2016-10-03] MEDS: SENNOSIDES 1 TAB PO SCH ×2 (08:19→21:45)
[2016-10-03] MEDS: TESTOSTERONE 1% 5 GM GEL PKT TD SCH (08:20)
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
[2016-10-03] MEDS: PROPRANOLOL HCL 10 MG TAB PO SCH ×3 (08:21→21:42)
[2016-10-03] MEDS: POLYETHYLENE GLYCOL 3350 17 GM PKT PO PRN (08:33)
[2016-10-03] MEDS ORDERED: ACETAMINOPHEN 500 MG TAB PO SCH (09:00)
[2016-10-03] MEDS ORDERED: ACETAMINOPHEN 325 MG TAB PO SCH (09:00)
[2016-10-03] MEDS ORDERED: traMADol 50 MG TAB PO SCH (12:00)
[2016-10-03] MEDS: traZODone 50 MG TAB PO SCH (21:42)
[2016-10-03] MEDS: MELATONIN 3 MG TAB PO SCH (21:42)
[2016-10-04] MEDS: ACETAMINOPHEN 325 MG TAB PO SCH ×5 (04:24→18:38)
[2016-10-04] MEDS: traMADol 50 MG TAB PO SCH ×5 (04:25→18:39)
[2016-10-04] MEDS: BENEFIBER/NUTRISOURCE FIBER PKT 1 EACH PO SCH ×2 (06:21→15:31)
[2016-10-04] MEDS: ASPIRIN 325 MG TAB PO SCH (06:21)
[2016-10-04] MEDS: oxyCODONE IR 5 MG TAB PO PRN (08:15)
[2016-10-04] MEDS: SENNOSIDES 1 TAB PO SCH ×2 (08:17→22:21)
[2016-10-04] MEDS: risperiDONE 0.25 MG TAB PO SCH ×2 (08:17→21:12)
[2016-10-04] MEDS: PROPRANOLOL HCL 10 MG TAB PO SCH ×3 (08:17→21:11)
[2016-10-04] MEDS: TESTOSTERONE 1% 5 GM GEL PKT TD SCH (10:05)
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
[2016-10-04] MEDS: POLYETHYLENE GLYCOL 3350 17 GM PKT PO PRN (15:31)
[2016-10-04] MEDS: traZODone 50 MG TAB PO SCH (21:12)
[2016-10-04] MEDS: MELATONIN 3 MG TAB PO SCH (21:12)
[2016-10-05] MEDS: traMADol 50 MG TAB PO PRN (04:36)
[2016-10-05] MEDS: ACETAMINOPHEN 325 MG TAB PO SCH ×5 (04:44→22:10)
[2016-10-05] MEDS: traMADol 50 MG TAB PO SCH ×5 (04:45→22:11)
[2016-10-05] MEDS: BENEFIBER/NUTRISOURCE FIBER PKT 1 EACH PO SCH ×2 (06:06→14:29)
[2016-10-05] MEDS: ASPIRIN 325 MG TAB PO SCH (06:07)
[2016-10-05] MEDS: risperiDONE 0.25 MG TAB PO SCH ×2 (08:04→22:10)
[2016-10-05] MEDS: PROPRANOLOL HCL 10 MG TAB PO SCH ×3 (08:04→22:13)
[2016-10-05] MEDS: SENNOSIDES 1 TAB PO SCH ×2 (08:04→22:11)
[2016-10-05] MEDS: TESTOSTERONE 1% 5 GM GEL PKT TD SCH (08:05)
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
[2016-10-05] MEDS: risperiDONE 0.25 MG TAB PO PRN (16:38)
[2016-10-05] MEDS: traZODone 50 MG TAB PO SCH (22:10)
[2016-10-05] MEDS: MELATONIN 3 MG TAB PO SCH (22:10)
[2016-10-06] MEDS: ACETAMINOPHEN 325 MG TAB PO SCH ×3 (05:14→17:02)
[2016-10-06] MEDS: ASPIRIN 325 MG TAB PO SCH (05:14)
[2016-10-06] MEDS: BENEFIBER/NUTRISOURCE FIBER PKT 1 EACH PO SCH ×2 (05:15→14:11)
[2016-10-06] MEDS: traMADol 50 MG TAB PO SCH ×3 (05:15→17:02)
[2016-10-06] MEDS: TEARS/DEXTRAN 70/HYPROMELLOSE 15 ML OPHT.BTL EACHEYE PRN ×3 (06:02→21:27)
[2016-10-06] MEDS: POLYETHYLENE GLYCOL 3350 17 GM PKT PO PRN (07:36)
[2016-10-06] MEDS: PROPRANOLOL HCL 10 MG TAB PO SCH ×3 (07:37→20:42)
[2016-10-06] MEDS: risperiDONE 0.25 MG TAB PO SCH ×2 (07:38→20:42)
[2016-10-06] MEDS: SENNOSIDES 1 TAB PO SCH ×2 (07:38→20:42)
[2016-10-06] MEDS: oxyCODONE IR 5 MG TAB PO PRN ×2 (08:24→18:16)
[2016-10-06] MEDS: TESTOSTERONE 1% 5 GM GEL PKT TD SCH (09:57)
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
[2016-10-06] MEDS: risperiDONE 0.25 MG TAB PO PRN (12:55)
[2016-10-06] MEDS: MELATONIN 3 MG TAB PO SCH (20:42)
[2016-10-06] MEDS: traZODone 50 MG TAB PO SCH (20:42)
[2016-10-06] MEDS: PETROLAT,WHT/MIN OIL/SOD CHL 3.5 GM OPHT.OINT EACHEYE PRN (21:27)
[2016-10-07] MEDS: ACETAMINOPHEN 325 MG TAB PO SCH ×4 (04:43→18:02)
[2016-10-07] MEDS: traMADol 50 MG TAB PO SCH ×4 (04:43→18:03)
[2016-10-07] MEDS: BENEFIBER/NUTRISOURCE FIBER PKT 1 EACH PO SCH ×2 (04:44→12:37)
[2016-10-07] MEDS: ASPIRIN 325 MG TAB PO SCH (04:44)
[2016-10-07] MEDS: TESTOSTERONE 1% 5 GM GEL PKT TD SCH (07:42)
[2016-10-07] MEDS: risperiDONE 0.25 MG TAB PO SCH ×2 (07:43→19:30)
[2016-10-07] MEDS: PROPRANOLOL HCL 10 MG TAB PO SCH ×3 (07:43→22:00)
[2016-10-07] MEDS: SENNOSIDES 1 TAB PO SCH ×2 (07:43→19:29)
[2016-10-07] MEDS: oxyCODONE IR 5 MG TAB PO PRN (10:16)
[2016-10-07] MEDS: risperiDONE 0.25 MG TAB PO PRN ×2 (10:56→16:29)
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
[2016-10-07] MEDS: MELATONIN 3 MG TAB PO SCH (19:30)
[2016-10-07] MEDS: traZODone 50 MG TAB PO SCH (19:30)
[2016-10-08] MEDS: traMADol 50 MG TAB PO SCH ×4 (06:02→17:40)
[2016-10-08] MEDS: ASPIRIN 325 MG TAB PO SCH (06:02)
[2016-10-08] MEDS: ACETAMINOPHEN 325 MG TAB PO SCH ×4 (06:02→17:39)
[2016-10-08] MEDS: TEARS/DEXTRAN 70/HYPROMELLOSE 15 ML OPHT.BTL EACHEYE PRN (06:07)
[2016-10-08] MEDS: BENEFIBER/NUTRISOURCE FIBER PKT 1 EACH PO SCH ×2 (06:07→12:30)
[2016-10-08] MEDS: oxyCODONE IR 5 MG TAB PO PRN ×2 (06:56→16:49)
[2016-10-08] MEDS: PROPRANOLOL HCL 10 MG TAB PO SCH ×3 (08:52→20:32)
[2016-10-08] MEDS: TESTOSTERONE 1% 5 GM GEL PKT TD SCH (08:52)
[2016-10-08] MEDS: SENNOSIDES 1 TAB PO SCH ×2 (08:53→20:28)
[2016-10-08] MEDS: risperiDONE 0.25 MG TAB PO SCH ×2 (08:53→20:28)
[2016-10-08] MEDS: risperiDONE 0.25 MG TAB PO PRN (15:29)
[2016-10-08] MEDS: MELATONIN 3 MG TAB PO SCH (20:28)
[2016-10-08] MEDS: traZODone 50 MG TAB PO SCH (20:28)
[2016-10-08] MEDS: traMADol 50 MG TAB PO PRN (20:32)
[2016-10-09] MEDS: ACETAMINOPHEN 325 MG TAB PO SCH ×4 (00:41→17:18)
[2016-10-09] MEDS: traMADol 50 MG TAB PO SCH ×4 (00:41→17:19)
[2016-10-09] MEDS: ASPIRIN 325 MG TAB PO SCH (04:51)
[2016-10-09] MEDS: risperiDONE 0.25 MG TAB PO PRN (04:56)
[2016-10-09] MEDS: BENEFIBER/NUTRISOURCE FIBER PKT 1 EACH PO SCH ×2 (05:50→14:30)
[2016-10-09] MEDS: risperiDONE 0.25 MG TAB PO SCH ×2 (09:06→20:14)
[2016-10-09] MEDS: TESTOSTERONE 1% 5 GM GEL PKT TD SCH (09:06)
[2016-10-09] MEDS: SENNOSIDES 1 TAB PO SCH ×2 (09:06→20:14)
[2016-10-09] MEDS: PROPRANOLOL HCL 10 MG TAB PO SCH ×3 (09:08→20:14)
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
[2016-10-09] MEDS: POLYETHYLENE GLYCOL 3350 17 GM PKT PO PRN (11:58)
[2016-10-09] MEDS: TEARS/DEXTRAN 70/HYPROMELLOSE 15 ML OPHT.BTL EACHEYE PRN (16:13)
[2016-10-09] MEDS: oxyCODONE IR 5 MG TAB PO PRN (19:00)
[2016-10-09] MEDS: MELATONIN 3 MG TAB PO SCH (20:14)
[2016-10-09] MEDS: traMADol 50 MG TAB PO PRN (20:14)
[2016-10-09] MEDS: traZODone 50 MG TAB PO SCH (20:14)
[2016-10-10] MEDS: risperiDONE 0.25 MG TAB PO PRN (03:57)
[2016-10-10] MEDS: ASPIRIN 325 MG TAB PO SCH (06:45)
[2016-10-10] MEDS: ACETAMINOPHEN 325 MG TAB PO SCH ×5 (06:45→23:58)
[2016-10-10] MEDS: traMADol 50 MG TAB PO SCH ×5 (06:46→23:58)
[2016-10-10] MEDS: BENEFIBER/NUTRISOURCE FIBER PKT 1 EACH PO SCH ×2 (06:46→14:17)
[2016-10-10] MEDS: risperiDONE 0.25 MG TAB PO SCH ×2 (08:34→23:58)
[2016-10-10] MEDS: TESTOSTERONE 1% 5 GM GEL PKT TD SCH (08:34)
[2016-10-10] MEDS: PROPRANOLOL HCL 10 MG TAB PO SCH ×3 (08:34→23:58)
[2016-10-10] MEDS: SENNOSIDES 1 TAB PO SCH ×2 (08:34→23:58)
[2016-10-10] MEDS: POLYETHYLENE GLYCOL 3350 17 GM PKT PO PRN (08:34)
[2016-10-10] MEDS: TEARS/DEXTRAN 70/HYPROMELLOSE 15 ML OPHT.BTL EACHEYE PRN (12:24)
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
[2016-10-10] MEDS ORDERED: ZOLPIDEM TARTRATE 5 MG TAB PO PRN (21:21)
[2016-10-10] MEDS: MELATONIN 3 MG TAB PO SCH (23:13)
[2016-10-10] MEDS: traZODone 50 MG TAB PO SCH (23:58)
[2016-10-11] MEDS: ACETAMINOPHEN 325 MG TAB PO SCH ×3 (06:11→16:57)
[2016-10-11] MEDS: ASPIRIN 325 MG TAB PO SCH (06:12)
[2016-10-11] MEDS: BENEFIBER/NUTRISOURCE FIBER PKT 1 EACH PO SCH ×2 (06:12→12:15)
[2016-10-11] MEDS: traMADol 50 MG TAB PO SCH ×3 (06:12→16:57)
[2016-10-11] MEDS: TESTOSTERONE 1% 5 GM GEL PKT TD SCH (08:22)
[2016-10-11] MEDS: risperiDONE 0.25 MG TAB PO SCH ×2 (08:22→20:53)
[2016-10-11] MEDS: traMADol 50 MG TAB PO PRN (08:23)
[2016-10-11] MEDS: SENNOSIDES 1 TAB PO SCH ×2 (08:23→20:53)
[2016-10-11] MEDS: PROPRANOLOL HCL 10 MG TAB PO SCH ×3 (08:26→20:53)
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
[2016-10-11] MEDS: POLYETHYLENE GLYCOL 3350 17 GM PKT PO PRN (16:56)
[2016-10-11] MEDS: traZODone 50 MG TAB PO SCH (20:53)
[2016-10-12] MEDS: traMADol 50 MG TAB PO SCH ×4 (02:00→17:41)
[2016-10-12] MEDS: ACETAMINOPHEN 325 MG TAB PO SCH ×4 (02:00→17:41)
[2016-10-12] MEDS: ASPIRIN 325 MG TAB PO SCH (06:22)
[2016-10-12] MEDS: BENEFIBER/NUTRISOURCE FIBER PKT 1 EACH PO SCH ×2 (06:23→15:05)
[2016-10-12] MEDS: risperiDONE 0.25 MG TAB PO SCH ×2 (08:27→20:54)
[2016-10-12] MEDS: TESTOSTERONE 1% 5 GM GEL PKT TD SCH (08:27)
[2016-10-12] MEDS: SENNOSIDES 1 TAB PO SCH ×2 (08:28→20:58)
[2016-10-12] MEDS: PROPRANOLOL HCL 10 MG TAB PO SCH ×3 (08:37→21:01)
[2016-10-12] MEDS: POLYETHYLENE GLYCOL 3350 17 GM PKT PO PRN (08:39)
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
[2016-10-12] MEDS: risperiDONE 0.25 MG TAB PO PRN (15:07)
[2016-10-12] MEDS: traZODone 50 MG TAB PO SCH (20:58)
[2016-10-13] MEDS: traMADol 50 MG TAB PO SCH ×4 (02:01→18:42)
[2016-10-13] MEDS: ACETAMINOPHEN 325 MG TAB PO SCH ×4 (02:02→18:42)
[2016-10-13] MEDS: BENEFIBER/NUTRISOURCE FIBER PKT 1 EACH PO SCH ×2 (06:04→12:33)
[2016-10-13] MEDS: ASPIRIN 325 MG TAB PO SCH (06:04)
[2016-10-13] MEDS: oxyCODONE IR 5 MG TAB PO PRN (06:49)
[2016-10-13] MEDS: TESTOSTERONE 1% 5 GM GEL PKT TD SCH (08:49)
[2016-10-13] MEDS: risperiDONE 0.25 MG TAB PO SCH ×2 (08:49→20:56)
[2016-10-13] MEDS: SENNOSIDES 1 TAB PO SCH ×2 (08:49→20:56)
[2016-10-13] MEDS: PROPRANOLOL HCL 10 MG TAB PO SCH ×4 (08:49→21:00)
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
[2016-10-13] MEDS: traZODone 50 MG TAB PO SCH (20:56)
[2016-10-14] MEDS: ACETAMINOPHEN 325 MG TAB PO SCH ×4 (05:29→16:59)
[2016-10-14] MEDS: traMADol 50 MG TAB PO SCH ×4 (05:31→16:59)
[2016-10-14] MEDS: ASPIRIN 325 MG TAB PO SCH (06:08)
[2016-10-14] MEDS: BENEFIBER/NUTRISOURCE FIBER PKT 1 EACH PO SCH ×2 (06:09→12:34)
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
[2016-10-14] MEDS: TESTOSTERONE 1% 5 GM GEL PKT TD SCH (09:45)
[2016-10-14] MEDS: PROPRANOLOL HCL 10 MG TAB PO SCH ×2 (09:45→16:57)
[2016-10-14] MEDS: SENNOSIDES 1 TAB PO SCH ×2 (09:45→20:24)
[2016-10-14] MEDS: risperiDONE 0.25 MG TAB PO SCH ×2 (09:45→20:24)
[2016-10-14] MEDS: traZODone 50 MG TAB PO SCH (20:24)
[2016-10-15] MEDS: ACETAMINOPHEN 325 MG TAB PO SCH ×4 (04:16→17:53)
[2016-10-15] MEDS: PROPRANOLOL HCL 10 MG TAB PO SCH ×4 (04:18→20:33)
[2016-10-15] MEDS: traMADol 50 MG TAB PO SCH ×4 (04:20→18:01)
[2016-10-15] MEDS: BENEFIBER/NUTRISOURCE FIBER PKT 1 EACH PO SCH ×2 (05:30→13:45)
[2016-10-15] MEDS: ASPIRIN 325 MG TAB PO SCH (05:30)
[2016-10-15] MEDS: risperiDONE 0.25 MG TAB PO SCH ×2 (08:55→20:33)
[2016-10-15] MEDS: SENNOSIDES 1 TAB PO SCH ×2 (08:55→19:51)
[2016-10-15] MEDS: TESTOSTERONE 1% 5 GM GEL PKT TD SCH (08:56)
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
[2016-10-15] MEDS: traZODone 50 MG TAB PO SCH (20:33)
[2016-10-16] MEDS: ACETAMINOPHEN 325 MG TAB PO SCH ×4 (02:44→17:40)
[2016-10-16] MEDS: traMADol 50 MG TAB PO SCH ×4 (02:45→17:41)
[2016-10-16] MEDS: ASPIRIN 325 MG TAB PO SCH (05:58)
[2016-10-16] MEDS: BENEFIBER/NUTRISOURCE FIBER PKT 1 EACH PO SCH ×2 (05:59→14:26)
[2016-10-16] MEDS: PROPRANOLOL HCL 10 MG TAB PO SCH ×3 (07:22→20:43)
[2016-10-16] MEDS: risperiDONE 0.25 MG TAB PO SCH (07:26)
[2016-10-16] MEDS: SENNOSIDES 1 TAB PO SCH ×2 (07:27→20:43)
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
[2016-10-16] MEDS: TESTOSTERONE 1% 5 GM GEL PKT TD SCH (12:31)
[2016-10-16] MEDS: traZODone 50 MG TAB PO SCH (20:49)
[2016-10-17] MEDS: traMADol 50 MG TAB PO SCH ×4 (01:16→17:12)
[2016-10-17] MEDS: ACETAMINOPHEN 325 MG TAB PO SCH ×4 (01:16→17:12)
[2016-10-17] MEDS: BENEFIBER/NUTRISOURCE FIBER PKT 1 EACH PO SCH ×2 (05:43→17:03)
[2016-10-17] MEDS: ASPIRIN 325 MG TAB PO SCH (06:10)
[2016-10-17] MEDS: TESTOSTERONE 1% 5 GM GEL PKT TD SCH (08:06)
[2016-10-17] MEDS: SENNOSIDES 1 TAB PO SCH ×2 (08:06→20:39)
[2016-10-17] MEDS: PROPRANOLOL HCL 10 MG TAB PO SCH ×3 (08:06→20:38)
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
[2016-10-17] MEDS: traZODone 50 MG TAB PO SCH (20:38)
[2016-10-18] MEDS: ACETAMINOPHEN 325 MG TAB PO SCH ×4 (03:58→17:50)
[2016-10-18] MEDS: traMADol 50 MG TAB PO SCH ×4 (03:58→17:52)
[2016-10-18] MEDS: ASPIRIN 325 MG TAB PO SCH (06:15)
[2016-10-18] MEDS: BENEFIBER/NUTRISOURCE FIBER PKT 1 EACH PO SCH ×2 (06:20→14:02)
[2016-10-18] MEDS: SENNOSIDES 1 TAB PO SCH (07:49)
[2016-10-18] MEDS: PROPRANOLOL HCL 10 MG TAB PO SCH ×3 (09:31→21:02)
[2016-10-18] MEDS: TESTOSTERONE 1% 5 GM GEL PKT TD SCH (09:32)
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
[2016-10-18] MEDS: traZODone 50 MG TAB PO SCH (21:02)
[2016-10-19] MEDS: ACETAMINOPHEN 325 MG TAB PO SCH ×4 (05:38→18:00)
[2016-10-19] MEDS: traMADol 50 MG TAB PO SCH ×4 (05:39→18:00)
[2016-10-19] MEDS: BENEFIBER/NUTRISOURCE FIBER PKT 1 EACH PO SCH ×2 (06:44→13:13)
[2016-10-19] MEDS: ASPIRIN 325 MG TAB PO SCH (06:44)
[2016-10-19] MEDS: PROPRANOLOL HCL 10 MG TAB PO SCH ×3 (08:18→20:46)
[2016-10-19] MEDS: TESTOSTERONE 1% 5 GM GEL PKT TD SCH (08:18)
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
[2016-10-19] MEDS: traZODone 50 MG TAB PO SCH (20:47)
[2016-10-20] MEDS: ACETAMINOPHEN 325 MG TAB PO SCH ×4 (00:41→17:17)
[2016-10-20] MEDS: traMADol 50 MG TAB PO SCH ×4 (00:42→17:17)
[2016-10-20] MEDS: BENEFIBER/NUTRISOURCE FIBER PKT 1 EACH PO SCH ×2 (06:13→14:30)
[2016-10-20] MEDS: ASPIRIN 325 MG TAB PO SCH (06:14)
[2016-10-20] MEDS: TESTOSTERONE 1% 5 GM GEL PKT TD SCH (07:52)
[2016-10-20] MEDS: PROPRANOLOL HCL 10 MG TAB PO SCH ×3 (07:52→21:04)
[2016-10-20] MEDS: TEARS/DEXTRAN 70/HYPROMELLOSE 15 ML OPHT.BTL EACHEYE PRN (07:56)
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
[2016-10-20] MEDS: traZODone 50 MG TAB PO SCH (21:04)
[2016-10-21] MEDS: ACETAMINOPHEN 325 MG TAB PO SCH ×4 (02:03→16:53)
[2016-10-21] MEDS: traMADol 50 MG TAB PO SCH ×4 (02:04→16:54)
[2016-10-21] MEDS: BENEFIBER/NUTRISOURCE FIBER PKT 1 EACH PO SCH ×2 (06:06→12:20)
[2016-10-21] MEDS: ASPIRIN 325 MG TAB PO SCH (06:06)
[2016-10-21] MEDS: PETROLAT,WHT/MIN OIL/SOD CHL 3.5 GM OPHT.OINT EACHEYE PRN (07:57)
[2016-10-21] MEDS: TESTOSTERONE 1% 5 GM GEL PKT TD SCH (07:57)
[2016-10-21] MEDS: SENNOSIDES 1 TAB PO PRN (08:33)
[2016-10-21] MEDS: PROPRANOLOL HCL 10 MG TAB PO SCH ×4 (08:34→21:03)
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
[2016-10-21] MEDS: TEARS/DEXTRAN 70/HYPROMELLOSE 15 ML OPHT.BTL EACHEYE PRN (16:57)
[2016-10-21] MEDS: traZODone 50 MG TAB PO SCH (21:03)
[2016-10-22] MEDS: ACETAMINOPHEN 325 MG TAB PO SCH ×4 (00:43→18:07)
[2016-10-22] MEDS: traMADol 50 MG TAB PO SCH ×3 (00:44→12:44)
[2016-10-22] MEDS: BENEFIBER/NUTRISOURCE FIBER PKT 1 EACH PO SCH ×2 (05:23→12:44)
[2016-10-22] MEDS: ASPIRIN 325 MG TAB PO SCH (05:23)
[2016-10-22] MEDS: TESTOSTERONE 1% 5 GM GEL PKT TD SCH (08:30)
[2016-10-22] MEDS: PROPRANOLOL HCL 10 MG TAB PO SCH ×3 (08:30→20:11)
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
[2016-10-22] MEDS: traZODone 50 MG TAB PO SCH (20:11)
[2016-10-23] MEDS: ACETAMINOPHEN 325 MG TAB PO SCH ×4 (02:34→17:47)
[2016-10-23] MEDS: BENEFIBER/NUTRISOURCE FIBER PKT 1 EACH PO SCH ×2 (05:55→14:23)
[2016-10-23] MEDS: ASPIRIN 325 MG TAB PO SCH (05:55)
[2016-10-23] MEDS: TEARS/DEXTRAN 70/HYPROMELLOSE 15 ML OPHT.BTL EACHEYE PRN (07:09)
[2016-10-23] MEDS: TESTOSTERONE 1% 5 GM GEL PKT TD SCH (07:09)
[2016-10-23] MEDS: SENNOSIDES 1 TAB PO PRN (09:39)
[2016-10-23] MEDS: traMADol 50 MG TAB PO PRN (09:40)
[2016-10-23] MEDS: PROPRANOLOL HCL 10 MG TAB PO SCH ×3 (09:40→20:54)
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
[2016-10-23] MEDS: traZODone 50 MG TAB PO SCH (20:54)
[2016-10-24] MEDS: ACETAMINOPHEN 325 MG TAB PO SCH ×4 (00:24→17:49)
[2016-10-24] MEDS: ASPIRIN 325 MG TAB PO SCH (05:47)
[2016-10-24] MEDS: BENEFIBER/NUTRISOURCE FIBER PKT 1 EACH PO SCH ×2 (05:47→12:15)
[2016-10-24 08:34] LABS: FOLLICLE STIMULATING HORMONE 0.92 mIU/mL (1.55-9.74); PROLACTIN 21.2 ng/mL (3.7-17.9)
[2016-10-24] MEDS: PROPRANOLOL HCL 10 MG TAB PO SCH ×3 (09:32→21:54)
[2016-10-24] MEDS: TESTOSTERONE 1% 5 GM GEL PKT TD SCH (09:32)
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
[2016-10-24 19:56] VITALS: RESP 16; TEMP 98.6
[2016-10-24] MEDS: traZODone 50 MG TAB PO SCH (21:54)
[2016-10-25] MEDS: ACETAMINOPHEN 325 MG TAB PO SCH ×4 (02:18→17:26)
[2016-10-25] MEDS: BENEFIBER/NUTRISOURCE FIBER PKT 1 EACH PO SCH ×2 (05:54→13:05)
[2016-10-25] MEDS: ASPIRIN 325 MG TAB PO SCH (05:54)
[2016-10-25 06:41] VITALS: O2SAT 98
[2016-10-25] MEDS: PROPRANOLOL HCL 10 MG TAB PO SCH ×2 (08:39→16:12)
[2016-10-25 08:41] VITALS: PULSE 73
[2016-10-25] MEDS: TESTOSTERONE 1% 5 GM GEL PKT TD SCH (09:21)
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
--- NOTE | 2016-10-25 14:35 | PDOREHIP ---
Admission [facility] - Admission - 3 Day Assessment Period Admission Date/Day 1: 08/23/16 Day 2: 08/24/16 Day 3: 08/25/16 Discharge [facility] - Discharge - 3 Day Assessment Period 2 Days Prior to Anticipated Discharge Date: 10/23/16 1 Day Prior to Anticipated Discharge Date: 10/24/16 Anticipated Discharge Date: 10/25/16 - Discharge Skin Conditions Unhealed Pressure Ulcer (1 or more/Stage 1 or >)-Discharge: 0. No
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
[2016-10-25 16:15] VITALS: BP 99/59
== END 2016-10-25 19:01 | disposition home health service (06) | DRG 945 ==
LOC: BREH 15:00
PROVIDERS: ADMIT Internal Medicine; ATTEND Internal Medicine
PROC: F08Z7ZZ Vocational Activities and Functional Community or Work Reintegration Skills Treatment (ICD-10-PCS; principal; 2016-08-23)
PROC: F0636ZZ Communicative/Cognitive Integration Skills Treatment of Neurological System - Whole Body (ICD-10-PCS; principal; 2016-08-23)
PROC: F07M3ZZ Motor Function Treatment of Musculoskeletal System - Whole Body (ICD-10-PCS; principal; 2016-08-23)
DX: S06.2X9D Diffuse traumatic brain injury with loss of consciousness of unspecified duration, subsequent encounter (principal); I77.74 Dissection of vertebral artery; G81.94 Hemiplegia, unspecified affecting left nondominant side; E23.0 Hypopituitarism; S12.100D Unspecified displaced fracture of second cervical vertebra, subsequent encounter for fracture with routine healing; S43.004D Unspecified dislocation of right shoulder joint, subsequent encounter; R13.19 Other dysphagia; R33.9 Retention of urine, unspecified; Z93.1 Gastrostomy status; V49.9XXD Car occupant (driver) (passenger) injured in unspecified traffic accident, subsequent encounter
CPT/HCPCS: 84481-90; 92507-GN; 92522-GN; 92526-GN; 92610-GN; 97110-GO; 97110-GP; 97112-GO; 97112-GP; 97116-GP; 97140-GO; 97163-GP; 97167-GO; 97530-GO; 97530-GP; 97532-GO; 97535-GO; 99366-GO; 99368-GO; J1650

== ENCOUNTER 2016-08-29 10:09 | Emergency (ER) | payer MEDICAID ==
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
[2016-08-29 11:47] VITALS: BP 103/68; PULSE 97; RESP 20; TEMP 97.9; O2SAT 98
== END 2016-08-29 11:47 | disposition home or self-care (01) ==
LOC: EDUNIT#
DX: M24.411 Recurrent dislocation, right shoulder (principal); F17.200 Nicotine dependence, unspecified, uncomplicated; Z79.82 Long term (current) use of aspirin; X58.XXXA Exposure to other specified factors, initial encounter

== ENCOUNTER → 2016-10-30 | Outpatient (CLI) | payer MEDICAID | LOC: FIMAGING 15:38 | PROVIDERS: ATTEND Physician Assistant Surgical | DX: S12.100D Unspecified displaced fracture of second cervical vertebra, subsequent encounter for fracture with routine healing (principal) ==

== ENCOUNTER → 2016-11-19 | Outpatient (CLI) | payer MEDICAID | LOC: FIMAGING 14:50 | PROVIDERS: ATTEND Orthopaedic Surgery | DX: S42.124A Nondisplaced fracture of acromial process, right shoulder, initial encounter for closed fracture (principal); R60.0 Localized edema ==

== ENCOUNTER → 2017-07-24 | Outpatient (CLI) | payer MEDICAID | PROVIDERS: ATTEND Otolaryngology | DX: R13.10 Dysphagia, unspecified (principal); Z87.820 Personal history of traumatic brain injury; V89.9XXS Person injured in unspecified vehicle accident, sequela | CPT/HCPCS: 92611-GN ==

== ENCOUNTER 2018-09-10 07:38 | Emergency (ER) | payer MEDICAID | END 2018-09-10 08:15 | disposition home or self-care (01) ==